=== PATIENT | male | born 1995 | race African-American/Black ===

== ENCOUNTER 2016-06-12 22:56 | Emergency (ER) | payer BC, OTHER ==
[~2016-06-12] VITALS: Ht 177.8 cm; Wt 64.0 kg
[~2016-06-12 22:56] MED LIST: GUAN1ER PO; Z.0.NO CURRENT MEDS
[2016-06-12 22:58] VITALS: BP 130/75; PULSE 81; RESP 14; TEMP 98; O2SAT 98
--- NOTE | 2016-06-13 00:46 | PD ---
HPI Chief Complaint: Cold / Flu Symptoms Time Seen by Provider: 00:40 Travel History International Travel<30 days: No Contact w/Intl Traveler<30days: No Traveled to known affect area: No History of Present Illness HPI 20-year-old male presents with cough and nasal congestion. Symptoms started 2 days ago. The cough is nonproductive. He has not tried using any medication for symptom relief. He does smoke tobacco products. Denies recent travel, rash , sore throat, ear pain, fevers or chills. He has no other complaints at this time. [facility] Past Medical History ADHD: Yes (ADHD) Cancer: No Cardiovascular Problems: No Diabetes: No Psychiatric: Yes (ADJUSTMENT REACTION DISODER.) Immunizations Current: Yes Migraines: No Seizures: No Thyroid Disease: No Ulcer: No Social History Alcohol Use: No Tobacco Use: Yes Substance Use: No Allergies-Medications (Allergen,Severity, Reaction): Coded Allergies: No Known Allergies (Unverified , 06/12/16) Reported Meds & Prescriptions Reported Meds & Active Scripts Active Reported Intuniv (Guanfacine Hcl) 1 Mg Tab 1 Mg PO DAILY No Current Meds (Miscellaneous Medication) Misc Review of Systems Except as stated in HPI: all other systems reviewed are Neg Physical Exam Narrative GENERAL: Well-developed well-nourished male in no acute distress SKIN: Warm and dry. HEAD: Atraumatic. Normocephalic. EYES: Pupils equal and round. No scleral icterus. No injection or drainage. ENT: No nasal bleeding or discharge. Mucous membranes pink and moist. NECK: Trachea midline. No JVD. CARDIOVASCULAR: Regular rate and rhythm. No murmur appreciated. RESPIRATORY: No accessory muscle use. Clear to auscultation. Breath sounds equal bilaterally. Data Data Last Documented VS Vital Signs Date Time Temp Pulse Resp B/P Pulse Ox O2 Delivery O2 Flow Rate FiO2 06/12/16 22:58 98.0 81 14 130/75 98 Room Air MDM Medical Decision Making Medical Screen Exam Complete: Yes Emergency Medical Condition: Yes Medical Record Reviewed: Yes Differential Diagnosis Bronchitis, pneumonia, influenza, rhinitis, sinusitis Narrative Course 20-year-old male presents with a 2 day history of nasal congestion and dry cough. Physical exam is benign. He appears to have a viral upper respiratory infection. Supportive care is recommended. He is concerned because he is going to be taking care of his son over the next few days. I explained that a viral upper respiratory infection in an adult could cause a much worse infection and a child and so I talked to him about standard precautions including washing hands, covering mouth when coughing. He will be given some facial masks to go home with to use as needed. Diagnosis Primary Impression: Upper respiratory infection Qualified Code: J06.9 - Upper respiratory tract infection, unspecified type Additional Instructions: Wash hands frequently, cover mouth when coughing, stay well-hydrated and well- nourished, avoid tobacco products, follow-up with primary care physician as needed. Return for any emergent medical conditions. Med/Other Pt SpecificInfo: No Change to Meds Disposition: 01 DISCHARGE HOME Condition: Stable Antwon Everett Jun 13, 2016 00:46
== END 2016-06-13 01:18 | disposition home or self-care (01) ==
LOC: NEPB 22:56
DX: J06.9 Acute upper respiratory infection, unspecified (principal); B97.89 Other viral agents as the cause of diseases classified elsewhere; R05 Cough; Z72.0 Tobacco use; Z86.59 Personal history of other mental and behavioral disorders
CPT/HCPCS: 99283